=== PATIENT | male | born 2000 | race African-American/Black ===

== ENCOUNTER 2024-04-03 08:39 | Emergency (ER) | payer SELFPAY ==
[~2024-04-03] VITALS: Ht 175.3 cm; Wt 79.0 kg
[2024-04-03 08:46] VITALS: BP 141/94; PULSE 97; RESP 18; TEMP 97.5; O2SAT 99
[2024-04-03] MEDS ORDERED: ACETAMINOPHEN 325MG TABLET PO ONE (09:15)
[2024-04-03] MEDS ORDERED: SUCRALFATE 1G TABLET PO SCH (09:15)
[2024-04-03] MEDS ORDERED: ONDANSETRON HCL 4MG/2ML INJ IV ONE (09:15)
[2024-04-03] MEDS ORDERED: FAMOTIDINE 20MG/2ML VIAL IV ONE (09:15)
[2024-04-03 09:38] LABS: BASOPHILS % 0.6 % (0.0-2.0); DIFFERENTIAL COMMENT 0; EOSINOPHILS % 0.2 % (0.0-5.0); HEMOGLOBIN. 16.9 g/dL (14.0-18.0); LYMPHOCYTES % 49.2 % (20.0-50.0); MEAN CORPUSCULAR HEMOGLOBIN 33.5 pg (28.0-32.0); MEAN CORPUSCULAR HGB CONC 34.5 g/dL (31.0-37.0); MEAN CORPUSCULAR VOLUME 97.1 fL (80.0-94.0); MEAN PLATELET VOLUME 8.4 fl (7.4-10.4); PLATELET 257 x1000/uL (130-400); RED BLOOD CELL COUNT 5.05 mill/uL (4.7-6.1); RED CELL DISTRIBUTION WIDTH 12.9 % (11.6-14.6); WHITE BLOOD COUNT 3.9 x1000/uL (4.5-11.0)
[2024-04-03 09:41] LABS: CHLORIDE 106 mEq/L (98-107); POTASSIUM 3.8 mEq/L (3.5-5.1); SODIUM 142 mEq/L (136-145)
[2024-04-03 09:43] LABS: CARBON DIOXIDE 23 mEq/L (21-32)
[2024-04-03 09:48] LABS: CREATININE 0.8 mg/dL (0.6-1.3); GLUCOSE 99 mg/dL (70-105); UREA NITROGEN BLOOD 8 mg/dL (9-23)
[2024-04-03 09:50] LABS: ALANINE AMINOTRANSFERASE 23 IU/L (10-49); ALBUMIN 5.1 g/dL (3.2-4.8); ASPARTATE AMINOTRANSFERASE 24 IU/L (<34); BILIRUBIN DIRECT 0.2 mg/dL (<=3.0)
[2024-04-03 09:51] LABS: BILIRUBIN TOTAL 0.6 mg/dL (0.1-1.0); PROTEIN TOTAL 8.3 g/dL (6.0-8.3)
== END 2024-04-03 09:54 | disposition left against medical advice (07) ==
LOC: ER 08:39
DX: R10.11 Right upper quadrant pain (principal); J45.909 Unspecified asthma, uncomplicated
CPT/HCPCS: 36415; 80048; 80076; 85025; 99283

== ENCOUNTER 2024-04-03 10:49 | Emergency (ER) | payer SELFPAY ==
[~2024-04-03] VITALS: Ht 180.3 cm; Wt 73.0 kg
[2024-04-03 10:54] VITALS: BP 147/108; PULSE 108; RESP 16; TEMP 98.3; O2SAT 98
[2024-04-03] MEDS ORDERED: ONDANSETRON 4MG ODT PO STA (12:05)
[2024-04-03] MEDS ORDERED: DICYCLOMINE 10 MG/5 ML ORAL SYR PO STA (12:05)
[2024-04-03] MEDS ORDERED: MAGNESIUM/ALUMINUM HYDROXIDE/SIMETHICONE 30ML UDC PO STA (12:05)
[2024-04-03] MEDS ORDERED: FAMOTIDINE 20MG TABLET PO ONE (12:15)
[2024-04-03] MEDS ORDERED: MAGNESIUM/ALUMINUM HYDROXIDE/SIMETHICONE 30ML UDC PO SCH (12:30)
[2024-04-03] MEDS ORDERED: FAMOTIDINE 20MG TABLET PO SCH (12:30)
[2024-04-03] MEDS ORDERED: ONDANSETRON 4MG ODT PO SCH (12:45)
== END 2024-04-03 14:23 | disposition left against medical advice (07) ==
LOC: ER 10:49
DX: K29.70 Gastritis, unspecified, without bleeding (principal); J45.909 Unspecified asthma, uncomplicated
CPT/HCPCS: 99283; Q0162; 99281